=== PATIENT | female | born 1995 | race Hispanic/Latino ===

== ENCOUNTER 2018-11-24 07:09 | Emergency (ER) | payer OTHER ==
[2018-11-24 07:38] LABS: Absolute Lymphocytes (CBC) 2.9 K/uL (0.7-4.9); Basophils % 0.5 % (0-1.3); Hematocrit 40.1 % (36.0-45.0); Lymphocytes % 40.6 % (15.3-44.8); MPV 9.3 fL (7.6-11.3); RBC Red Blood Cell Count 4.36 M/uL (3.86-4.86)
[2018-11-24 07:53] LABS: ALT/SGPT 15 U/L (12-78); AST/SGOT 16 U/L (15-37); Albumin 3.6 g/dL (3.4-5.0); Alkaline Phosphatase 91 U/L (45-117); BUN Blood Urea Nitrogen 9 mg/dL (7-18); Bicarbonate 27 mmol/L (21-32); Bilirubin Direct 0.1 mg/dL (0-0.2); Bilirubin Total 0.3 mg/dL (0.2-1.0); Glucose Level 85 mg/dL (74-106); Lipase 104 U/L (73-393); Potassium 3.4 mmol/L (3.5-5.1); Protein, Total 7.3 g/dL (6.4-8.2); Sodium Level 139 mmol/L (136-145)
[2018-11-24] MEDS ORDERED: METOCLOPRAMIDE 10 MG/2mL INJ ONE (09:02)
[2018-11-24] MEDS ORDERED: NA CHLORIDE 0.9% 1,000 ML ONE (09:02)
[2018-11-24 09:21] LABS: Urine Blood TRACE (NEG); Urine Glucose NEGATIVE (NEG); Urine Protein NEGATIVE (NEG); Urine pH 6.5 (5.0-7.0)
--- NOTE | 2018-11-24 10:00 | RAD REPORT ---
EXAM DESCRIPTION: CT - Abdomen Pelvis W Contrast - 11/24/2018 9:37 am CLINICAL HISTORY: right sided abdominal pain COMPARISON: Gallbladder ultrasound same date, abdomen ultrasound October 2013 TECHNIQUE: Biphasic, helical CT imaging of the abdomen and pelvis was performed following 100 ml non -ionic IV contrast. Oral contrast was given. All CT scans are performed using dose optimization technique as appropriate and may include automated exposure control or mA/KV adjustment according to patient size. FINDINGS: No suspicious findings in the lung bases. Liver size is normal. In the subcapsular dome right lobe there is a 15 millimeter round low-density m ass. On arterial phase imaging a peripheral nodular enhancement is seen along the inferior margin. Ve nous phase imaging shows the mass to partially fill in. No delayed imaging was performed. Incidental hemangioma is the favored diagnosis. The worrisome or aggressive lesion of the liver is felt to be qu ite unlikely. No evidence for hemorrhage. No other liver focal finding. Spleen and pancreas show no suspicious findings. Gallbladder and biliary tree are also without suspic ious finding. Symmetric renal function is seen with no hydronephrosis or suspicious renal mass. No pyelonephritis o r acute parenchymal process. No bladder abnormalities. No adrenal abnormalities. Uterus and left ovary are unremarkable. Right ovary appears to contain a 15 mm cyst. Cyst rupture or hemorrhage not suspected. No stomach or small bowel abnormality. Appendix is not clearly defined from the adjacent on opacified small bowel loops. Appendicitis is not suspected. A few small mesenteric lymph nodes are seen in the right lower quadrant. No free air, free fluid or inflammatory stranding. No hernia, mass or bulky lymphadenopathy. No suspicious bony findings. IMPRESSION: CT abdomen and pelvis imaging shows no emergent finding. A few small mesenteric lymph no jarek are present. Appendix is somewhat difficult to identified the acute appendicitis is not suspected.
--- NOTE | 2018-11-24 10:32 | ER ---
Nurse's Notes [facility] Name: Ange Maria Age: 23 yrs Sex: Female : 1995 Arrival Date: 11/24/2018 Time: 07:13 Bed 14 Private MD: Diagnosis: Generalized abdominal pain;Unspecified ovarian cysts Presentation: 11/24 07:19 Presenting complaint: Patient states: Intermittent abd pain in umbilical area and RUQ ss since July 2018. Patient reports that she is supposed to have an ultrasound, but she cannot wait long enough because the pain is getting worse. Transition of care: patient was not received from another setting of care. Onset of symptoms was July 2018. Risk Assessment: Do you want to hurt yourself or someone else? Patient reports no desire to harm self or others. Initial Sepsis Screen: Does the patient meet any 2 criteria? No. Patient's initial sepsis screen is negative. Does the patient have a suspected source of infection? No. Patient's initial sepsis screen is negative. Care prior to arrival: None. 07:19 Method Of Arrival: Ambulatory ss 07:19 Acuity: AMANDA 3 ss Historical: - Allergies: 07:22 No Known Allergies; ss - Home Meds: 07:22 Control [Active]; ss - PMHx: 07:22 None; ss - PSHx: 07:22 None; ss - Immunization history:: Adult Immunizations unknown. - Social history:: Smoking status: Patient/guardian denies using tobacco. - Ebola Screening: : Patient denies exposure to infectious person Patient denies travel to an Ebola-affected area in the 21 days before illness onset. Screenin:32 Abuse screen: Denies threats or abuse. Denies injuries from another. Nutritional sv screening: No deficits noted. Tuberculosis screening: No symptoms or risk factors identified. Fall Risk None identified. Assessment: 07:20 General: Appears in no apparent distress. uncomfortable, slender, well groomed, well sv developed, Behavior is calm, cooperative, appropriate for age. Pain: Complains of pain in epigastric area and right upper quadrant Pain currently is 8 out of 10 on a pain scale. Is intermittent, episodic. Neuro: Level of Consciousness is awake, alert, obeys commands, Oriented to person, place, time, situation, Moves all extremities. Full function Gait is steady. Respiratory: Airway is patent Respiratory effort is even, unlabored, Respiratory pattern is regular, symmetrical. GI: Abdomen is flat, Abd is soft X 4 quads Abdomen is tender to palpation in epigastric area and right upper quadrant. GI: Last meal was November 24, 2018. grapes this morning. Derm: Skin is pink, warm \T\ dry. 08:00 Reassessment: Patient appears in no apparent distress at this time. No changes from sv previously documented assessment. Patient and/or family updated on plan of care and expected duration. Pain level reassessed. Patient is alert, oriented x 3, equal unlabored respirations, skin warm/dry/pink. 09:15 Reassessment: Patient appears in no apparent distress at this time. No changes from sv previously documented assessment. Patient and/or family updated on plan of care and expected duration. Pain level reassessed. Patient is alert, oriented x 3, equal unlabored respirations, skin warm/dry/pink. 10:49 Reassessment: Patient appears in no apparent distress at this time. Patient and/or sv family updated on plan of care and expected duration. Pain level reassessed. Patient is alert, oriented x 3, equal unlabored respirations, skin warm/dry/pink. Vital Signs: 07:22 Resp 16; Weight 49.9 kg; Height 4 ft. 11 in. (149.86 cm); Pain 8/10; ss 07:22 BP 120 / 81; Pulse 93; Temp 97.8; Pulse Ox 100% ; sv 08:20 BP 99 / 65; Pulse 78; Resp 16; Pulse Ox 100% ; sv 09:11 BP 92 / 58; Pulse 87; Resp 16; Pulse Ox 98% ; sv 09:51 BP 93 / 53; Pulse 89; Resp 16; Pulse Ox 96% ; sv 07:22 Body Mass Index 22.22 (49.90 kg, 149.86 cm) ED Course: 07:13 Patient arrived in ED. as 07:17 Gabby Modi, RN is Primary Nurse. sv 07:19 Arm band placed on. sv 07:19 Patient has correct armband on for positive identification. Placed in gown. Bed in low sv position. Pulse ox on. NIBP on. Door closed. Head of bed elevated. 07:20 Triage completed. ss 07:20 Anurag Perez PA is PHCP. jm 07:20 Sukhdev Regalado MD is Attending Physician. jmm 07:25 Inserted saline lock: 20 gauge in right antecubital area, using aseptic technique. sv Blood collected. Flushed right antecubital with 5 ml normal saline. 07:38 Attending Physician role handed off by Sukhdev Regalado MD [facility] 07:38 Constantino Jiménez MD is Attending Physician. [place] 08:17 Awaiting: Ultrasound. sv 08:17 Urine collected: clean catch specimen, clear. sv 08:25 Patient taken to ultrasound. via wheelchair. sv 08:30 US Abdomen Limited In Process Unspecified. EDMS 08:32 Patient moved back from ultrasound. sv 09:[address] Scan. sv 09:37 CT Abd/Pelvis - IV Contrast Only In Process Unspecified. EDMS 10:31 Dameon Patel MD is Referral Physician. jmm 10:48 No provider procedures requiring assistance completed. IV discontinued, intact, sv bleeding controlled, No redness/swelling at site. Pressure dressing applied. Administered Medications: 09:10 Drug: Reglan 10 mg Route: IVP; Site: right antecubital; sv 09:30 Follow up: Response: No adverse reaction sv 09:11 Drug: NS 0.9% 1000 ml Route: IV; Rate: 1 bolus; Site: right antecubital; sv 10:30 Follow up: Response: No adverse reaction; IV Status: Completed infusion; IV Intake: sv 1000ml Intake: 10:30 IV: 1000ml; Total: 1000ml. sv Outcome: 10:31 Discharge ordered by . [facility] 10:49 Discharged to home ambulatory. sv 10:49 Condition: stable 10:49 Discharge instructions given to patient, Instructed on discharge instructions, follow up and referral plans. no drinking with medication, no driving heavy equipment, medication usage, Demonstrated understanding of instructions, follow-up care, medications, Prescriptions given X 3. 10:49 Patient left the ED. sv Signatures: Dispatcher [employer] Gabby Ray, Constantino Bullock RN, MD MD cha Mickail, Joel, PA PA jmm Martinez, Amelia as Smirch, Shelby, RN RN ss
--- NOTE | 2018-11-24 10:32 | EDPHYS ---
Physician Documentation [facility] Name: Ange Maria Age: 23 yrs Sex: Female : 1995 Arrival Date: 11/24/2018 Time: 07:13 Bed 14 Private MD: ED Physician Constantino Jiménez HPI: 11/24 07:20 This 23 yrs old Female presents to ER via Ambulatory with complaints of jmm Abdominal Pain. 07:20 The patient presents with abdominal pain in the epigastric area, in the periumbilical jmm area. Onset: The symptoms/episode began/occurred gradually, 4 month(s) ago. The symptoms do not radiate. Associated signs and symptoms: Pertinent positives: constipation, Pertinent negatives: diarrhea, fever, vomiting. The symptoms are described as achy. Modifying factors: The symptoms are alleviated by nothing, the symptoms are aggravated by food. This is a 23 year old female with no chronic medical conditions that presents to the ED with complaints of right sided and periumbilical abdominal pain which began in July but has worsened. Denies fever, denies vomiting, denies diarrhea. Patient states having decreased appetite. Historical: - Allergies: 07:22 No Known Allergies; ss - Home Meds: 07:22 Control [Active]; ss - PMHx: 07:22 None; ss - PSHx: 07:22 None; ss - Immunization history:: Adult Immunizations unknown. - Social history:: Smoking status: Patient/guardian denies using tobacco. - Ebola Screening: : Patient denies exposure to infectious person Patient denies travel to an Ebola-affected area in the 21 days before illness onset. ROS: 07:20 Constitutional: Negative for fever, chills, and weight loss, Cardiovascular: Negative jmm for chest pain, palpitations, and edema, Respiratory: Negative for shortness of breath, cough, wheezing, and pleuritic chest pain. 07:20 Abdomen/GI: Positive for abdominal pain, constipation. 07:20 All other systems are negative. Exam: 07:20 Constitutional: This is a well developed, well nourished patient who is awake, alert, jmm and in no acute distress. Head/Face: atraumatic. Eyes: EOMI, no conjunctival erythema appreciated ENT: Moist Mucus Membranes Neck: Trachea midline, Supple Chest/axilla: Normal chest wall appearance and motion. Cardiovascular: Regular rate and rhythm. No edema appreciated Respiratory: Normal respirations, no respiratory distress appreciated 07:20 Back: Normal ROM Skin: General appearance color normal MS/ Extremity: Moves all extremities, no obvious deformities appreciated, no edema noted to the lower extremities Neuro: Awake and alert, normal gait Psych: Behavior is normal, Mood is normal, Patient is cooperative and pleasant 07:20 Abdomen/GI: Inspection: abdomen appears normal, Bowel sounds: normal, Palpation: soft, mild abdominal tenderness, in the umbilical area and right lower quadrant. Vital Signs: 07:22 Resp 16; Weight 49.9 kg; Height 4 ft. 11 in. (149.86 cm); Pain 8/10; ss 07:22 BP 120 / 81; Pulse 93; Temp 97.8; Pulse Ox 100% ; sv 08:20 BP 99 / 65; Pulse 78; Resp 16; Pulse Ox 100% ; sv 09:11 BP 92 / 58; Pulse 87; Resp 16; Pulse Ox 98% ; sv 09:51 BP 93 / 53; Pulse 89; Resp 16; Pulse Ox 96% ; sv 07:22 Body Mass Index 22.22 (49.90 kg, 149.86 cm) ss MDM: 07:38 Patient medically screened. [place] 10:27 Data reviewed: vital signs, nurses notes. Counseling: I had a detailed discussion with elmo the patient and/or guardian regarding: the historical points, exam findings, and any diagnostic results supporting the discharge/admit diagnosis, the need for outpatient follow up, to return to the emergency department if symptoms worsen or persist or if there are any questions or concerns that arise at home. 11/24 07:20 Order name: Basic Metabolic Panel; Complete Time: 07:57 sv 11/24 07:20 Order name: CBC with Diff; Complete Time: 07:48 sv 11/24 07:20 Order name: Creatinine for Radiology; Complete Time: 07:57 sv 11/24 07:20 Order name: Hepatic Function; Complete Time: 07:57 sv 11/24 07:20 Order name: Lipase; Complete Time: 07:57 sv 11/24 08:20 Order name: Urine Dipstick--Ancillary (enter results); Complete Time: 09:27 bd 11/24 07:20 Order name: IV Saline Lock; Complete Time: 07:33 sv 11/24 07:20 Order name: Labs collected and sent; Complete Time: 07:33 sv 11/24 07:58 Order name: US Abdomen Limited [facility] 11/24 07:58 Order name: Urine Dipstick-Ancillary (obtain specimen); Complete Time: 08:17 [facility] 11/24 08:20 Order name: Urine --Ancillary (enter results); Complete Time: 09:27 bd 11/24 08:40 Order name: CT Abd/Pelvis - IV Contrast Only [facility] Administered Medications: 09:10 Drug: Reglan 10 mg Route: IVP; Site: right antecubital; sv 09:30 Follow up: Response: No adverse reaction sv 09:11 Drug: NS 0.9% 1000 ml Route: IV; Rate: 1 bolus; Site: right antecubital; sv 10:30 Follow up: Response: No adverse reaction; IV Status: Completed infusion; IV Intake: sv 1000ml Disposition: 12:57 Co-signature as Attending Physician, Constantino Jiménez MD I agree with the assessment and [place] plan of care. Disposition: 11/24/18 10:31 Discharged to Home. Impression: Generalized abdominal pain, Unspecified ovarian cysts. - Condition is Stable. - Discharge Instructions: Abdominal Pain, Adult, Ovarian Cyst. - Prescriptions for Zofran ODT 4 mg Oral tablet,disintegrating - place 1 tablet by TRANSLINGUAL route every 4-8 hours; 20 tablet. Bentyl 20 mg Oral Tablet - take 1 tablet by ORAL route every 6 hours As needed; 20 tablet. Tylenol- Codeine #3 300-30 mg Oral Tablet - take 1 tablet by ORAL route every 6 hours As needed; 6 tablet. - Work release form, Medication Reconciliation Form, Thank You Letter, Antibiotic Education, Prescription Opioid Use form. - Follow up: Dameon Patel MD; When: 2 - 3 days; Reason: Recheck today's complaints, Continuance of care, Re-evaluation by your physician. Signatures: Dispatcher [employer] Gabby Ray, SULEMAN RN Constantino Viera MD MD cha Mickail, Joel, PA PA jmm Smirch, Shelby, RN RN ss Corrections: (The following items were deleted from the chart) 10:49 10:31 11/24/2018 10:31 Discharged to Home. Impression: Generalized abdominal pain; sv Unspecified ovarian cysts. Condition is Stable. Forms are Medication Reconciliation Form, Thank You Letter, Antibiotic Education, Prescription Opioid Use. Follow up: Dameon Patel; When: 2 - 3 days; Reason: Recheck today's complaints, Continuance of care, Re-evaluation by your physician. elmo
[2018-11-24 10:56] VITALS: TEMP 97.8
[2018-11-24 11:00] VITALS: BP 93/53; O2SAT 96
--- NOTE | 2018-11-24 11:14 | RAD REPORT ---
EXAM DESCRIPTION: US - Abdomen Exam Limited - 11/24/2018 8:31 am CLINICAL HISTORY: right upper abdominal pain COMPARISON: ABDOMINAL EXAM COMPLETE dated 11/10/2013; Abdomen Pelvis W Contrast dated 11/24/2018 FINDINGS: The gallbladder demonstrates no gallstones. No pericholecystic fluid or gallbladder wall t hickening. The common bile duct is normal measuring 3 mm. The liver demonstrates no findings of intrahepatic biliary dilatation. IMPRESSION: Unremarkable examination.
== END 2018-11-24 10:49 | disposition home or self-care (01) ==
LOC: ER 07:09
DX: N83.209 Unspecified ovarian cyst, unspecified side (principal)
CPT/HCPCS: 96361; 85025; 80048; 36415; 81025; 80076; 81003; 83690; 74177; 76705; 96374; 99284; J2765; J7030

== ENCOUNTER 2023-05-22 23:29 | Emergency (ER) | payer OTHER, SELFPAY ==
[2023-05-23] MEDS ORDERED: NA CHLORIDE 0.9% 1,000 ML ONE (00:05)
[2023-05-23] MEDS ORDERED: METOCLOPRAMIDE 10 MG/2mL INJ ONE (00:05)
[2023-05-23] MEDS ORDERED: ONDANSETRON 4 MG/2 ML VIAL ONE (00:05)
[2023-05-23] MEDS ORDERED: DIPHENOX/ATROP SULF 1 TAB PO ONE (00:50)
[2023-05-23 00:51] LABS: Absolute Lymphocytes (CBC) 0.5 K/uL (0.7-4.9); Absolute Monocytes 0.4 K/uL (0.1-1.3); Absolute Neutrophil 11.7 K/uL (1.8-8.0); Basophils % 0.1 % (0-1.3); Eosinophils % 0.4 % (0-4.4); Hematocrit 42.3 % (36.0-45.0); Hemoglobin 14.4 g/dL (12.0-15.0); Lymphocytes % 4.2 % (15.3-44.8); MCH 30.8 pg (27.0-35.0); MCHC 34.1 g/dL (32.0-36.0); MCV 90.5 fL (80-100); MPV 9.2 fL (7.6-11.3); Monocytes % 3.1 % (3.3-12.3); Neutrophils % 92.2 % (41.7-73.7); Nucleated Red Blood Cells % 0.4 % (0-0); Platelets 303 thou/uL (152-406); RBC Red Blood Cell Count 4.67 M/uL (3.86-4.86); Red Cell Distribution Width 12.7 % (12.1-15.2)
[2023-05-23 01:03] LABS: Albumin 4.3 g/dL (3.4-5.0); Albumin/Globulin Ratio 1.1 (1.1-1.8); Anion Gap 10.8 mEq/L (5.0-15.0); Bilirubin Total 0.7 mg/dL (0.2-1.0); Globulin 3.8 g/dL (2.3-3.5); Potassium 3.8 mEq/L (3.5-5.1); Protein, Total 8.1 g/dL (6.4-8.2)
[2023-05-23 02:05] LABS: Band Neutrophils 9 % (0-1); Blood Morphology Comment NOT SEEN (NOT SEEN); Differential Total Cells Count 100; Lymphocytes 5 % (15-42); Monocytes 6 % (0-10); Platelet Estimate ADEQ; Segmented Neutrophils 80 % (40-80)
[2023-05-23 03:07] LABS: Specific Gravity 1.023 (1.005-1.030); Sqamous Epithelial <5 /HPF (None Seen); Urine Bacteria None Seen /HPF (<20); Urine Bilirubin NEGATIVE (Negative); Urine Blood 2+ (Negative); Urine Clarity Clear (Clear); Urine Color Light-Yellow (Yellow); Urine Culture Reflex Order NOT NEEDED; Urine Glucose NEGATIVE (Negative); Urine Ketones 2+ (Negative); Urine Microscopic Reflex YN ORDER UMIC; Urine Mucus 2+ /HPF (None Seen); Urine Nitrite NEGATIVE (Negative); Urine Protein TRACE (Negative); Urine RBC 21-50 /HPF (None Seen); Urine Urobilinogen Normal (Normal); Urine WBC None Seen /HPF (<5); Urine pH 5.5 (5.0-7.0)
--- NOTE | 2023-05-23 03:26 | ER ---
Nurse's Notes [facility] Name: Ange Maria Age: 27 yrs Sex: Female : 1995 Arrival Date: 05/22/2023 Time: 23:29 Bed 12 Private MD: Diagnosis: Acute viral gastroenteritis;Nausea, Vomiting and Diarrhea Presentation: 05/21 23:36 Chief complaint: Patient states: epigastric pain starting at 0600 today that got worse km8 at 1200 with n/v/d and pain in LLQ now. Coronavirus screen: Client denies travel out of the [place] in the last 14 days. Ebola Screen: No symptoms or risks identified at this time. Initial Sepsis Screen: Does the patient meet any 2 criteria? HR > 90 bpm. No. Patient's initial sepsis screen is negative. Does the patient have a suspected source of infection? No. Patient's initial sepsis screen is negative. Risk Assessment: Do you want to hurt yourself or someone else? Patient reports no desire to harm self or others. Onset of symptoms was May 22, 2023 at 06:00. 23:36 Method Of Arrival: Ambulatory km8 23:36 Acuity: AMANDA 3 km8 Triage Assessment: 23:36 General: Appears in no apparent distress. uncomfortable, Behavior is calm, cooperative, km8 appropriate for age. Pain: Complains of pain in left lower quadrant Pain currently is 6 out of 10 on a pain scale. EENT: No signs and/or symptoms were reported regarding the EENT system. Neuro: Level of Consciousness is awake, alert, obeys commands, Oriented to person, place, time, situation. Cardiovascular: Denies chest pain, shortness of breath, Patient's skin is warm and dry. Respiratory: Airway is patent Respiratory effort is even, unlabored, Respiratory pattern is regular, symmetrical. GI: Abdomen is non-distended, Reports lower abdominal pain, diarrhea, nausea, vomiting. : No signs and/or symptoms were reported regarding the genitourinary system. Derm: No signs and/or symptoms reported regarding the dermatologic system. Skin is intact, is healthy with good turgor, Skin is dry, Skin is pink, warm \T\ dry. normal, Skin temperature is warm. Musculoskeletal: No signs and/or symptoms reported regarding the musculoskeletal system. Range of motion: intact in all extremities. 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 - Infectious Disease History:: Denies. - Social history:: Smoking status: Patient denies any tobacco usage or history of. Patient/guardian denies using alcohol, street drugs. - Family history:: not pertinent. Screenin/10 23:36 [facility] ED Fall Risk Assessment (Adult) History of falling in the last 3 months, km8 including since admission No falls in past 3 months (0 pts) Confusion or Disorientation No (0 pts) Intoxicated or Sedated No (0 pts) Impaired Gait No (0 pts) Mobility Assist Device Used No (0 pt) Altered Elimination No (0 pt) Score/Fall Risk Level 0 - 2 = Low Risk Oriented to surroundings, Maintained a safe environment, Educated pt \T\ family on fall prevention, incl call for assistance when getting out of bed, Assessed \T\ reinforced patient's understanding of fall precautions. Abuse screen: Denies threats or abuse. Denies injuries from another. Nutritional screening: No deficits noted. Tuberculosis screening: No symptoms or risk factors identified. Assessment: 23:36 Reassessment: see triage assessment/notes. GI: Abdomen is non-distended, Reports lower km8 abdominal pain, diarrhea, nausea, vomiting. 05/22 01:00 Reassessment: Patient appears in no apparent distress at this time. Patient and/or km8 family updated on plan of care and expected duration. Pain level reassessed. Patient is alert, oriented x 3, equal unlabored respirations, skin warm/dry/pink. Patient states feeling better. Patient states symptoms have improved. 02:00 Reassessment: Patient appears in no apparent distress at this time. No changes from km8 previously documented assessment. Patient and/or family updated on plan of care and expected duration. Pain level reassessed. Patient is alert, oriented x 3, equal unlabored respirations, skin warm/dry/pink. 03:00 Reassessment: Patient appears in no apparent distress at this time. No changes from [facility] previously documented assessment. Patient and/or family updated on plan of care and expected duration. Pain level reassessed. Patient is alert, oriented x 3, equal unlabored respirations, skin warm/dry/pink. Vital Signs: 05/21 23:36 BP 110 / 88; Pulse 123; Resp 16; Temp 97.5(TE); Pulse Ox 99% on R/A; Weight 56.7 kg km8 (R); Height 4 ft. 11 in. ; Pain /; 05/22 01:30 BP 107 / 73; Pulse 99; Resp 16; Pulse Ox 99% on R/A; km8 02:00 BP 117 / 85; Pulse 100; Resp 16; Pulse Ox 100% on R/A; 8 02:15 BP 121 / 82; Pulse 107; Resp 16; Pulse Ox 100% on R/A; 8 02:30 BP 104 / 79; Pulse 101; Resp 16; Pulse Ox 100% on R/A; 8 02:45 BP 100 / 73; Pulse 100; Resp 16; Pulse Ox 99% on R/A; km8 03:40 BP 101 / 70; Pulse 98; Resp 16; Temp 97.9; Pulse Ox 100% on R/A; Pain 0/10; pf1 05/21 23:36 Body Mass Index 25.25 (56.70 kg, 149.86 cm) [facility] 05/21 23:36 Pain Scale: Adult [facility] 03:40 Pain Scale: Adult pf1 Hawley Coma Score: 05/21 23:36 Eye Response: spontaneous(4). Motor Response: obeys commands(6). Verbal Response: km8 oriented(5). Total: 15. 05/22 07:23 Eye Response: spontaneous(4). Motor Response: obeys commands(6). Verbal Response: sp4 oriented(5). Total: 15. ED Course: 05/21 23:33 Patient arrived in ED. ra3 23:35 Gallito Dickinson MD is Attending Physician. sp4 23:36 Arm band placed on right wrist. km8 23:36 Patient has correct armband on for positive identification. Adult w/ patient. km8 23:37 Triage completed. 8 05/22 00:02 Inserted saline lock: 20 gauge in right antecubital area, using aseptic technique. Blood collected. 00:02 Initial lab(s) drawn, by ED staff, sent to lab. pf1 00:08 Lipase Sent. 8 00: CMP Sent. : CBC with Diff Sent. 00: Test, Serum Sent. km 00:22 Geovanna Pearce, RN is Primary Nurse. km8 01:31 Door closed. Lights dimmed. Moved to private room. Warm blanket given. Verbal pf1 reassurance given. 02:28 Urinalysis w/ reflexes Sent. pf1 02:28 Urine collected: clean catch specimen, clear. pf1 03:40 Provided Education on: prescriptions. pf1 03:40 No provider procedures requiring assistance completed. IV discontinued, intact, pf1 bleeding controlled, No redness/swelling at site. Pressure dressing applied. Administered Medications: 00:08 Drug: NS 0.9% IV 1000 ml IV at 1 bolus Per protocol; 1000 mL bolus Route: IV; Rate: 1 km8 bolus; Site: right antecubital; 01:00 Follow up: Response: No adverse reaction; Marked relief of symptoms; IV Status: pf1 Completed infusion; IV Intake: 1000ml 00:08 Drug: Ondansetron IVP 4 mg IVP once; over 2 minutes Route: IVP; Site: right antecubital;[facility] 01:00 Follow up: Response: No adverse reaction; Marked relief of symptoms; Nausea is decreasedpf1 00:08 Drug: metoCLOPramide IVP 10 mg IVP once; over 1 to 2 minutes Route: IVP; Site: right [facility] antecubital; 01:00 Follow up: Response: No adverse reaction; Marked relief of symptoms; Nausea is decreasedpf1 01:01 Drug: Diphenoxylate-Atropine PO 2 tabs PO once Route: PO; pf1 02:00 Follow up: Response: No adverse reaction; Marked relief of symptoms; Pain is decreased pf1 Medication: 05/21 23:36 VIS not applicable for this client. 8 Intake: 05/22 01:00 IV: 1000ml; Total: 1000ml. pf1 Outcome: 03:25 Discharge ordered by . sp4 03:40 Discharged to home ambulatory, with family, pf1 03:40 Condition: improved 03:40 Discharge instructions given to patient, family, Instructed on discharge instructions, follow up and referral plans. Demonstrated understanding of instructions, follow-up care, medications, Prescriptions given X 3, 03:46 Patient left the ED. pf1 Signatures: Aurora Bledsoe RN RN pf1 Gallito Dickinson MD MD sp4 Geovanna Pearce RN RN km8 Anu Cesar ra3 Corrections: (The following items were deleted from the chart) 05:16 05:15 Door closed. Lights dimmed. Moved to private room. pf1 pf1
--- NOTE | 2023-05-23 03:26 | EDPHYS ---
Physician Documentation [facility] Name: Ange Maria Age: 27 yrs Sex: Female : 1995 Arrival Date: 05/22/2023 Time: 23:29 Bed 12 Private MD: ED Physician Gallito Dickinson HPI: 05/21 23:35 This 27 yrs old Female presents to ER via Unassigned with complaints of sp4 Nausea/Vomiting/Diarrhea. 05/22 07:23 27-year-old female presents with acute onset nausea vomiting profuse watery diarrhea.. 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 - Infectious Disease History:: Denies. - Social history:: Smoking status: Patient denies any tobacco usage or history of. Patient/guardian denies using alcohol, street drugs. - Family history:: not pertinent. ROS: 07:23 Constitutional: Negative for fever, chills, and weight loss, positive nausea vomiting sp4 and diarrhea 07:23 All other systems are negative, Exam: 07:23 Constitutional: This is a well developed, well nourished patient who is awake, alert, sp4 and in no acute distress. Head/Face: Normocephalic, atraumatic. Eyes: Pupils equal round and reactive to light, extra-ocular motions intact. Lids and lashes normal. Conjunctiva and sclera are not injected. Cornea within normal limits. Periorbital areas with no swelling, redness, or edema. ENT: Nares patent. No nasal discharge, no septal abnormalities noted. Tympanic membranes are normal and external auditory canals are clear. Oropharynx with no redness, swelling, or masses, exudates, or evidence of obstruction, uvula midline. Mucous membranes moist. Neck: Trachea midline, no thyromegaly or masses palpated, and no cervical lymphadenopathy. Supple, full range of motion without nuchal rigidity, or vertebral point tenderness. Chest/axilla: Normal chest wall appearance and motion. Nontender with no deformity. No lesions are appreciated. Cardiovascular: Regular rate and rhythm with a normal S1 and S2. No gallops, murmurs, or rubs. Normal PMI, no JVD. No pulse deficits. Respiratory: Lungs have equal breath sounds bilaterally, clear to auscultation and percussion. No rales, rhonchi or wheezes noted. No increased work of breathing, no retractions or nasal flaring. Abdomen/GI: Soft, with normal bowel sounds. No distension or tympany. No guarding or rebound. No evidence of tenderness throughout. Back: No spinal tenderness. No costovertebral tenderness. Skin: Warm, dry with normal turgor. Normal color with no rashes, no lesions, and no evidence of cellulitis. MS/ Extremity: Pulses equal, no cyanosis. Neurovascular intact. Full, normal range of motion. Neuro: Awake and alert, GCS 15, oriented to person, place, time, and situation. Cranial nerves II-XII grossly intact. Motor strength 5/5 in all extremities. Sensory grossly intact. Psych: Awake, alert, with orientation to person, place and time. Behavior, mood, and affect are within normal limits Vital Signs: 05/21 23:36 BP 110 / 88; Pulse 123; Resp 16; Temp 97.5(TE); Pulse Ox 99% on R/A; Weight 56.7 kg km8 (R); Height 4 ft. 11 in. ; Pain 07/21; 05/22 01:30 BP 107 / 73; Pulse 99; Resp 16; Pulse Ox 99% on R/A; km8 02:00 BP 117 / 85; Pulse 100; Resp 16; Pulse Ox 100% on R/A; km8 02:15 BP 121 / 82; Pulse 107; Resp 16; Pulse Ox 100% on R/A; km8 02:30 BP 104 / 79; Pulse 101; Resp 16; Pulse Ox 100% on R/A; km8 02:45 BP 100 / 73; Pulse 100; Resp 16; Pulse Ox 99% on R/A; km8 03:40 BP 101 / 70; Pulse 98; Resp 16; Temp 97.9; Pulse Ox 100% on R/A; Pain 0/10; pf1 05/21 23:36 Body Mass Index 25.25 (56.70 kg, 149.86 cm) [facility] 05/21 23:36 Pain Scale: Adult km8 03:40 Pain Scale: Adult pf1 June Coma Score: 05/21 23:36 Eye Response: spontaneous(4). Motor Response: obeys commands(6). Verbal Response: km8 oriented(5). Total: 15. 05/22 07:23 Eye Response: spontaneous(4). Motor Response: obeys commands(6). Verbal Response: sp4 oriented(5). Total: 15. MDM: 05/21 23:51 Patient medically screened. 4 05/22 07:23 Differential diagnosis: Nonspecific abd pain, gastritis, viral gastroenteritis, sp4 gastroenteritis. Data reviewed: vital signs, nurses notes, lab test result(s), electrolytes, hepatic panel, urinalysis. ED course: Patient felt improved, stable for discharge home. 05/21 23:39 Order name: CBC with Diff; Complete Time: 02:45 sp4 05/21 23:39 Order name: CMP; Complete Time: 02:22 sp4 05/21 23:39 Order name: Lipase; Complete Time: 02:22 sp4 05/21 23:39 Order name: Urinalysis w/ reflexes; Complete Time: 03:19 sp4 05/21 23:42 Order name: Test, Serum; Complete Time: 02:22 8 05/22 00:59 Order name: Manual Differential; Complete Time: 02:45 EDMS 05/21 23:39 Order name: IV Saline Lock; Complete Time: 00:03 4 05/21 23:39 Order name: Labs collected and sent; Complete Time: 00:03 sp4 Administered Medications: 00:08 Drug: NS 0.9% IV 1000 ml IV at 1 bolus Per protocol; 1000 mL bolus Route: IV; Rate: 1 km8 bolus; Site: right antecubital; 01:00 Follow up: Response: No adverse reaction; Marked relief of symptoms; IV Status: pf1 Completed infusion; IV Intake: 1000ml 00:08 Drug: Ondansetron IVP 4 mg IVP once; over 2 minutes Route: IVP; Site: right antecubital;km8 01:00 Follow up: Response: No adverse reaction; Marked relief of symptoms; Nausea is decreasedpf1 00:08 Drug: metoCLOPramide IVP 10 mg IVP once; over 1 to 2 minutes Route: IVP; Site: right km8 antecubital; 01:00 Follow up: Response: No adverse reaction; Marked relief of symptoms; Nausea is decreasedpf1 01:01 Drug: Diphenoxylate-Atropine PO 2 tabs PO once Route: PO; pf1 02:00 Follow up: Response: No adverse reaction; Marked relief of symptoms; Pain is decreased pf1 Disposition Summary: 05/23/23 03:25 Discharge Ordered Notes: Location: Home sp4 Problem: new sp4 Symptoms: have improved sp4 Condition: Stable sp4 Diagnosis - Acute viral gastroenteritis sp4 - Nausea, Vomiting and Diarrhea sp4 Followup: sp4 - With: Private Physician - When: 7 - 10 days - Reason: Recheck today's complaints Discharge Instructions: - Discharge Summary Sheet sp4 - Viral Gastroenteritis, Adult, [id number] sp4 Forms: - Patient Portal Instructions sp4 Prescriptions: - Lomotil 2.5-0.025 mg Oral tablet - take 1 tablet ORAL route every 6 hours As needed PRN diarrhea; 30 tablet; sp4 Refills: 0, Product Selection Permitted - dicyclomine 20 mg Oral tablet - take 1 tablet ORAL route every 6 hours PRN abdominal pain; 30 tablet; Refills: sp4 0, Product Selection Permitted - ondansetron 8 mg Oral Tablet,disintegrating - take 1 tablet ORAL route every 6 hours PRN nausea; 30 tablet; Refills: 0, sp4 Product Selection Permitted Signatures: Dispatcher [employer] Aurora Cameron RN RN pf1 Gallito Dickinson MD MD sp4 Geovanna Pearce RN RN km8 Corrections: (The following items were deleted from the chart) 05/21 23:42 23:42 TEST, SERUM+SC.LAB.BRZ ordered. EDMS EDMS 05/22 02:38 05/21 23:40 Test, Urine+UC.LAB.BRZ ordered. EDMS EDMS
[2023-05-23 06:12] VITALS: BP 101/70; TEMP 97.9; O2SAT 100
== END 2023-05-23 03:46 | disposition home or self-care (01) ==
LOC: ER 23:29
DX: A08.4 Viral intestinal infection, unspecified (principal)
CPT/HCPCS: 36415; 80053; 81001; 83690; 84703; 85025; 96361; 96374; 96375; 99284; J2405; J2765; J7030